=== PATIENT | female | born 1930 | race Caucasian/White ===

== ENCOUNTER 2016-12-31 11:15 | Inpatient (IN) | payer MEDICARE, MEDICAID ==
[~2016-12-31] VITALS: Ht 162.6 cm; Wt 69.0 kg
--- NOTE | ~2016-12-31 | DS ---
PATIENT'S NAME: [facility] AGE: 87 Y [address] ROOM: [place] [address] LOCATION: [facility] ADMIT DATE: 12/31/2016 Discharge Summary DISCHARGE DATE: 01/19/2017 FAMILY PHYSICIAN: Gomez Lazcano MD ATTENDING PHYSICIAN: Gomez Merrill PRIMARY DIAGNOSES: Left femoral neck fracture, status post open reduction and internal fixation of left femoral neck fracture. SECONDARY DIAGNOSES: 1. Atrial fibrillation. 2. Hypothyroidism. 3. Gastroesophageal reflux disease. 4. Hyperlipidemia. 5. Asthma. 6. Hypertension. 7. Chronic kidney disease, stage 3. 8. Peripheral neuropathy. PROCEDURE PERFORMED: Left hip hemiarthroplasty. HISTORY: The patient is an 87-year-old female, who presented with a displaced left femoral neck fracture. The patient was thoroughly counseled regarding the risks, benefits, limitations, and alternatives to hemiarthroplasty. Please refer to her outpatient clinic notes and pre-admission history and physical. HOSPITAL COURSE: The patient underwent the above specified procedure on 12/28/2016 without complications. Spinal anesthesia was utilized. The patient received 24 hours of perioperative prophylactic antibiotics and remained hemodynamically stable and neurovascularly intact throughout the entire hospital course. The postoperative prophylactic deep venous thrombosis prophylaxis consisted of Coumadin, early mobilization, and pneumatic compression devices. Daily physical therapy for gait training, transfer training, and reinforcement of hip dislocation precautions was received. The patient progressed well in physical therapy. On the date of discharge to the transitional care unit, the incision of the hip was healing well and showed no signs of infection. DISPOSITION: Home following short stay in the transitional care unit. DISCHARGE ACTIVITY: The patient is to bear weight as tolerated with strict hip dislocation precautions as instructed. There are to be no dressing changes. The patient is to notify Dr. Merrill immediately if she experiences increased pain, fevers, chills, erythema, or drainage. PATIENT'S NAME: PA[facility]A [facility] AGE: 87 Y [address] ROOM: [place] [address] LOCATION: [facility] ADMIT DATE: 12/31/2016 Discharge Summary DISCHARGE DATE: 01/19/2017 FAMILY PHYSICIAN: Gomez Lazcano MD ATTENDING PHYSICIAN: Gomez Merrill DISCHARGE MEDICATIONS: 1. [place] 5/325 one tablet p.o. every 4 hours as needed for pain. 2. Warfarin as instructed by her primary care physician. 3. The patient was then instructed to continue all of her preadmission medications as instructed by her internal medicine physician. FOLLOWUP: Followup is to be 1 week subsequent to dismissal from the transitional care unit for postoperative evaluation and x-rays at that time. MATILDE GARCIA FOR MD SHONA ESCAMILLA/sriraml /[id number] d: 02/05/17300 t: 02/05/17 0932, DISCHARGE SUMMARY
[~2016-12-31 11:15] MED LIST: ARTIFICIAL TEAR15 ML OPHTH; AUGMENTIN 875-1 EACH PO; BROVANA15 MCG/2 M INH; CEFDINIR300 MG PO; COUMADIN ** IA3 MG PO; COUMADIN 4MG **4 MG PO; DALIRESP500 MCG PO; DILTIAZEM 24HR120 MG PO; DRISDOL 5050000 UNIT PO; DUONEB INH; GABAPENTIN300 MG PO; HYDROCODON-ACE1 EAC4 PO; K-TAB ER20 MEQ PO; LASIX40 MG PO; LOPID600 MG PO; PROTONIX40 MG PO; PULMICORT0.5 MG/21 INH; SYNTHROID25 MCG PO; TYLENOL EXTRA500 MG PO; [UNRECOGNIZED DRUG - OTHER] PO
[2017-01-01 06:27] LABS: HEMATOCRIT 32.1 % (30.0-46.0); HEMOGLOBIN 10.3 g/dL (10.0-15.0); MCH 28.9 pg (27.0-34.0); MCHC 32.1 gm/dL (32.0-36.5); MCV 89.9 fl (83.0-98.0); MPV 9.7 fl (9.4-12.4); PLATELET COUNT 356 K/uL (150-450); RBC 3.57 M/uL (3.00-5.00); RDW-CV 13.7 % (11.9-14.6); WBC 10.6 K/uL (4.0-11.0)
[2017-01-01 06:33] LABS: INR - (THERAPEUTIC) 2.7 (0.9-1.1); PROTIME 30.5 SECONDS (9.6-11.1)
[2017-01-01 06:38] LABS: ANION GAP 18.4 (10.0-19.0); CALCIUM 9.5 mg/dL (8.5-10.5); CREATININE 1.4 mg/dL (0.5-1.1); POTASSIUM 4.4 mMol/L (3.7-5.1)
[2017-01-01 07:05] LABS: ABSOLUTE NEUTROPHIL CT (ANC) 10.2 K/uL (1.8-7.8); BANDED NEUTROPHIL # 0.3 K/uL (0.0-0.1); BANDED NEUTROPHILS % 3 %; LYMPHOCYTE # 0.2 K/uL (0.8-4.0); LYMPHOCYTE % 2 %; MONOCYTE # 0.2 K/uL (0.0-1.0); SEGMENTED NEUTROPHIL # 9.9 K/uL (1.8-7.8); SEGMENTED NEUTROPHIL % 93 %
[2017-01-02 05:50] LABS: HEMATOCRIT 29.9 % (30.0-46.0); HEMOGLOBIN 9.5 g/dL (10.0-15.0); MCH 28.4 pg (27.0-34.0); MCHC 31.8 gm/dL (32.0-36.5); MCV 89.3 fl (83.0-98.0); MPV 9.4 fl (9.4-12.4); RBC 3.35 M/uL (3.00-5.00); RDW-CV 13.7 % (11.9-14.6); WBC 12.4 K/uL (4.0-11.0)
[2017-01-02 06:01] LABS: INR - (THERAPEUTIC) 3.3 (0.9-1.1); PROTIME 38.9 SECONDS (9.6-11.1)
[2017-01-02 06:09] LABS: ANION GAP 12.8 (10.0-19.0); CALCIUM 9.8 mg/dL (8.5-10.5); CREATININE 1.2 mg/dL (0.5-1.1); MAGNESIUM 2.3 mg/dL (1.3-2.6); PHOSPHORUS 2.7 mg/dL (2.5-4.9); POTASSIUM 3.8 mMol/L (3.7-5.1)
[2017-01-03 06:08] LABS: PROTIME 34.8 SECONDS (9.6-11.1)
[2017-01-03 15:15] LABS: ALBUMIN 2.4 gm/dL (3.5-5.0); ANION GAP 14.1 (10.0-19.0); CALCIUM 9.5 mg/dL (8.5-10.5); CREATININE 1.3 mg/dL (0.5-1.1); PHOSPHORUS 2.7 mg/dL (2.5-4.9); POTASSIUM 4.1 mMol/L (3.7-5.1)
[2017-01-04 06:22] LABS: PROTIME 22.4 SECONDS (9.6-11.1)
[2017-01-05 06:10] LABS: INR - (THERAPEUTIC) 1.6 (0.9-1.1); PROTIME 17.3 SECONDS (9.6-11.1)
[2017-01-05 06:11] LABS: ANION GAP 12.3 (10.0-19.0); CALCIUM 9.4 mg/dL (8.5-10.5); CREATININE 1.4 mg/dL (0.5-1.1); POTASSIUM 4.3 mMol/L (3.7-5.1)
[2017-01-06 06:04] LABS: INR - (THERAPEUTIC) 1.6 (0.9-1.1); PROTIME 17.8 SECONDS (9.6-11.1)
[2017-01-07 06:34] LABS: INR - (THERAPEUTIC) 1.9 (0.9-1.1); PROTIME 20.8 SECONDS (9.6-11.1)
[2017-01-08 05:44] LABS: INR - (THERAPEUTIC) 2.5 (0.9-1.1); PROTIME 28.6 SECONDS (9.6-11.1)
[2017-01-09 05:35] LABS: INR - (THERAPEUTIC) 2.9 (0.9-1.1); PROTIME 33.2 SECONDS (9.6-11.1)
[2017-01-10 06:51] LABS: INR - (THERAPEUTIC) 3.2 (0.9-1.1)
[2017-01-11 04:42] LABS: INR - (THERAPEUTIC) 3.3 (0.9-1.1); PROTIME 37.8 SECONDS (9.6-11.1)
[2017-01-12 05:51] LABS: INR - (THERAPEUTIC) 2.2 (0.9-1.1); PROTIME 24.1 SECONDS (9.6-11.1)
[2017-01-13 05:18] LABS: INR - (THERAPEUTIC) 1.7 (0.9-1.1); PROTIME 18.5 SECONDS (9.6-11.1)
[2017-01-14 05:07] LABS: INR - (THERAPEUTIC) 2.8 (0.9-1.1); PROTIME 32.4 SECONDS (9.6-11.1)
[2017-01-15 06:28] LABS: INR - (THERAPEUTIC) 3.6 (0.9-1.1); PROTIME 42.2 SECONDS (9.6-11.1)
[2017-01-16 05:45] LABS: BASOPHIL % 0.3 %; EOSINOPHIL # 0.2 K/uL (0.0-0.5); EOSINOPHIL % 2.7 %; HEMATOCRIT 32.5 % (30.0-46.0); HEMOGLOBIN 10.1 g/dL (10.0-15.0); IMMATURE GRANULOCYTE # 0.1 K/uL (0.0-0.3); IMMATURE GRANULOCYTE % 0.9 %; LYMPHOCYTE % 16.1 %; MCH 28.6 pg (27.0-34.0); MCHC 31.1 gm/dL (32.0-36.5); MCV 92.1 fl (83.0-98.0); MONOCYTE # 0.7 K/uL (0.0-1.0); MONOCYTE % 11.1 %; MPV 8.9 fl (9.4-12.4); NEUTROPHIL # (ANC) 4.4 K/uL (1.8-7.8); NEUTROPHIL % 68.9 %; NRBC % 0 /100WBC (0-0.00); PLATELET COUNT 331 K/uL (150-450); RBC 3.53 M/uL (3.00-5.00); RDW-CV 14.8 % (11.9-14.6); WBC 6.4 K/uL (4.0-11.0)
[2017-01-16 05:52] LABS: PROTIME 34.8 SECONDS (9.6-11.1)
[2017-01-16 05:59] LABS: ANION GAP 11.9 (10.0-19.0); CALCIUM 9.3 mg/dL (8.5-10.5); CREATININE 0.9 mg/dL (0.5-1.1); POTASSIUM 3.9 mMol/L (3.7-5.1)
[2017-01-17 06:17] LABS: INR - (THERAPEUTIC) 2.6 (0.9-1.1); PROTIME 29.9 SECONDS (9.6-11.1)
[2017-01-18 06:15] LABS: INR - (THERAPEUTIC) 2.7 (0.9-1.1); PROTIME 30.7 SECONDS (9.6-11.1)
[2017-01-18] MEDS ORDERED: HUMIBID LA (MU600 MG PO (12:04)
[2017-01-18] MEDS ORDERED: NORCO 5-325 TA1 EACH PO (12:06)
[2017-01-18] MEDS ORDERED: PROBIOTIC1 EAC1 PO (12:08)
[2017-01-19 05:47] LABS: INR - (THERAPEUTIC) 2.7 (0.9-1.1); PROTIME 30.8 SECONDS (9.6-11.1)
== END 2017-01-19 16:30 | disposition home health service (06) | DRG 559 ==
LOC: GSNF 11:15
PROVIDERS: Family Medicine; Internal Medicine; Nurse Practitioner Family; Physician Assistant; ADMIT Orthopaedic Surgery
PROC: F08Z4ZZ Home Management Treatment (ICD-10-PCS; principal; 2016-12-31)
PROC: F07Z9ZZ Gait Training/Functional Ambulation Treatment (ICD-10-PCS; principal; 2016-12-31)
DX: Z47.1 Aftercare following joint replacement surgery (principal); I50.33 Acute on chronic diastolic (congestive) heart failure; J96.10 Chronic respiratory failure, unspecified whether with hypoxia or hypercapnia; J44.1 Chronic obstructive pulmonary disease with (acute) exacerbation; J45.901 Unspecified asthma with (acute) exacerbation; J98.11 Atelectasis; S72.002D Fracture of unspecified part of neck of left femur, subsequent encounter for closed fracture with routine healing; W19.XXXD Unspecified fall, subsequent encounter; Z79.01 Long term (current) use of anticoagulants; I10 Essential (primary) hypertension; I12.9 Hypertensive chronic kidney disease with stage 1 through stage 4 chronic kidney disease, or unspecified chronic kidney disease; N18.3 Chronic kidney disease, stage 3 (moderate); Z96.642 Presence of left artificial hip joint; E03.9 Hypothyroidism, unspecified; I48.0 Paroxysmal atrial fibrillation
CPT/HCPCS: C1751; J2405; J7120; J7512; J7612